=== PATIENT | male | born 1985 | race Hispanic/Latino ===

== ENCOUNTER 2018-10-12 22:23 | Emergency (ER) | payer BC, OTHER ==
--- OUTSIDE RECORDS SUMMARY | 2018-10-12 22:25 | XMS REPORT ---
:1985 Author Organization [facility] Address [address] [place] [address] Dr. Alberto. [address] [place] [id number] Care Team Providers Name Role Phone DR RONALDO LOZOYA Unavailable Unavailable Problems This patient has no known problems. Allergies, Adverse Reactions, Alerts This patient has no known allergies or adverse reactions. Medications This patient has no known medications. Encounters Start End Encounter Admission Attending Care Care Encounter Date/Time Date/Time Type Type Clinicians Facility Department ID 2017-04-23 2017-04-23 Outpatient JUSTIN GARCIA [facility] [id number] 04:48:00 08:10:00 RONALDO
[2018-10-12] MEDS ORDERED: LIDOCAINE 1% W/EPI 1:100,000 MDV 50 ML VIAL ONE (23:59)
[2018-10-12] MEDS ORDERED: BUPIVACAINE 0.5% PF 10 ML VIAL ONE (23:59)
[2018-10-12] MEDS ORDERED: NA CHLORIDE 0.9% 1,000 ML ONE (23:59)
[2018-10-13 00:09] LABS: Absolute Lymphocytes (CBC) 2.1 K/uL (0.7-4.9); Absolute Monocytes 1.1 K/uL (0.1-1.3); Absolute Neutrophil 6.4 K/uL (1.8-8.0); Basophils % 0.6 % (0-1.3); Eosinophils % 1.7 % (0-4.4); Hematocrit 44.8 % (39.6-49.0); MPV 9.6 fL (7.6-11.3); Monocytes % 11.6 % (3.3-12.3); RBC Red Blood Cell Count 5.22 M/uL (4.33-5.43)
[2018-10-13 00:27] LABS: BUN Blood Urea Nitrogen 13 mg/dL (7-18); Bicarbonate 29 mmol/L (21-32); Glucose Level 105 mg/dL (74-106); Potassium 3.7 mmol/L (3.5-5.1); Sodium Level 142 mmol/L (136-145)
[2018-10-13] MEDS ORDERED: HYDROCODONE/APAP 7.5/325 MG TAB ONE (01:33)
[2018-10-13] MEDS ORDERED: SMZ./TMP. 800/160 MG TABLET ONE (01:33)
[2018-10-13] MEDS ORDERED: NA CHLORIDE 0.9% 1,000 ML ONE (01:33)
[2018-10-13] MEDS ORDERED: CLINDAMYCIN 900MG/D5W 900 MG/50 ML IVPB IV ONE (01:34)
--- NOTE | 2018-10-13 01:45 | ER ---
Nurse's Notes [facility] Name: Carlos Williamson Age: 33 yrs Sex: Male : 1985 Arrival Date: 10/12/2018 Time: 22:24 Bed 18 Private MD: Vladislav Parks Diagnosis: Cutaneous abscess of buttock-left;Cellulitis of buttock-left Presentation: 10/12 22:59 Presenting complaint: Patient states: "I started to have this pain in my lower back and jd3 butt that I thought it was just muscle stiffness, but when I got in the shower I felt what might be like a head of a pimple and it feels hot and hurts to even sit. I don't know if it is infected or what.". Transition of care: patient was not received from another setting of care. Onset of symptoms was October 12, 2018. Risk Assessment: Do you want to hurt yourself or someone else? Patient reports no desire to harm self or others. Initial Sepsis Screen: Does the patient meet any 2 criteria? HR > 90 bpm. No. Patient's initial sepsis screen is negative. Does the patient have a suspected source of infection? No. Patient's initial sepsis screen is negative. Care prior to arrival: None. 22:59 Method Of Arrival: Ambulatory j 22:59 Acuity: LIVAN 3 jd3 Historical: - Allergies: 23:02 Teresa-[place]; jd3 - Home Meds: 23:02 None [Active]; jd3 - PMHx: 23:02 None; jd3 - PSHx: 23:02 None; jd3 - Immunization history:: Adult Immunizations up to date. - Social history:: Smoking status: Patient/guardian denies using tobacco. - Ebola Screening: : Patient negative for fever greater than or equal to 101.5 degrees Fahrenheit, and additional compatible Ebola Virus Disease symptoms. Screenin:05 Abuse screen: Denies threats or abuse. Nutritional screening: No deficits noted. jd3 Tuberculosis screening: No symptoms or risk factors identified. Fall Risk Ambulatory Aid- None/Bed Rest/Nurse Assist (0 pts). Gait- Normal/Bed Rest/Wheelchair (0 pts) Mental Status- Oriented to own ability (0 pts). Total Beck Fall Scale indicates No Risk (0-24 pts). Assessment: 23:03 General: Appears in no apparent distress. uncomfortable, Behavior is calm, cooperative, jd3 appropriate for age. Pain: Complains of pain in left gluteus william Quality of pain is described as aching, pressure, tender. Neuro: Level of Consciousness is awake, alert, obeys commands, Oriented to person, place, time, situation, Appropriate for age. Cardiovascular: Capillary refill < 3 seconds Patient's skin is warm and dry. Respiratory: Airway is patent Respiratory effort is even, unlabored, Respiratory pattern is regular, symmetrical. GI: No signs and/or symptoms were reported involving the gastrointestinal system. : No signs and/or symptoms were reported regarding the genitourinary system. EENT: No signs and/or symptoms were reported regarding the EENT system. Derm: Skin is intact, Skin is dry, Skin is normal, Skin temperature is warm Wound noted left gluteus william Wound is closed, swollen, red, warm to the touch, firm upon palpation. Musculoskeletal: Circulation, motion, and sensation intact. Range of motion: intact in all extremities. 23:30 Reassessment: Patient appears in no apparent distress at this time. Patient and/or jd3 family updated on plan of care and expected duration. Pain level reassessed. Patient is alert, oriented x 3, equal unlabored respirations, skin warm/dry/pink. provider at bedside. 10/13 00:40 Reassessment: Patient appears in no apparent distress at this time. Patient and/or jd3 family updated on plan of care and expected duration. Pain level reassessed. Patient is alert, oriented x 3, equal unlabored respirations, skin warm/dry/pink. 01:47 Reassessment: Patient appears in no apparent distress at this time. Patient and/or jd3 family updated on plan of care and expected duration. Pain level reassessed. Patient is alert, oriented x 3, equal unlabored respirations, skin warm/dry/pink. 02:27 Reassessment: Patient appears in no apparent distress at this time. Patient and/or jd3 family updated on plan of care and expected duration. Pain level reassessed. Patient is alert, oriented x 3, equal unlabored respirations, skin warm/dry/pink. Vital Signs: 10/12 23:02 BP 127 / 74; Pulse 108; Resp 16 S; Temp 99.5(TE); Pulse Ox 98% on R/A; Weight 126.1 kg jd3 (R); Height 5 ft. 10 in. (177.80 cm) (R); Pain 8/10; 23:30 BP 138 / 98; Pulse 105; Resp 17 S; Pulse Ox 98% on R/A; jd3 10/13 02:28 BP 107 / 79; Pulse 93; Resp 17 S; Pulse Ox 99% on R/A; jd3 10/12 23:02 Body Mass Index 39.89 (126.10 kg, 177.80 cm) jd3 ED Course: 10/12 22:24 Patient arrived in ED. am2 22:24 Vladislav Parks MD is Private Physician. am2 22:30 Ian Ascencio PA is PHCP. cp 22:30 Ian Sanchez MD is Attending Physician. cp 22:59 Nick Deluca RN is Primary Nurse. jd3 23:01 Triage completed. jd3 23:03 Arm band placed on. jd3 23:05 Patient has correct armband on for positive identification. Placed in gown. Bed in low jd3 position. Call light in reach. Side rails up X 1. 23:54 Missed attempt(s): 20 gauge in right antecubital area. ag4 23:55 Missed attempt(s): 22 gauge in right antecubital area. ag4 23:55 Inserted saline lock: 22 gauge in left antecubital area, using aseptic technique. Blood jd3 collected. 10/13 01:43 Bernard Mora MD is Referral Physician. cp 02:28 No provider procedures requiring assistance completed. IV discontinued, intact, jd3 bleeding controlled, No redness/swelling at site. Pressure dressing applied. Administered Medications: 00:04 Drug: NS 0.9% 1000 ml Route: IV; Rate: 1 bolus; Site: left antecubital; jd3 02:30 Follow up: Response: No adverse reaction; IV Status: Completed infusion jd3 00:30 Drug: Lidocaine-Epinephrine -1%: (1:100,000) 50 ml Volume: 20 ml; Route: Infiltration; jd3 02:30 Follow up: Response: No adverse reaction jd3 00:30 Drug: Marcaine (0.5 %) 10 ml Volume: 10 ml; Route: Infiltration; jd3 02:30 Follow up: Response: No adverse reaction jd3 01:40 Drug: Hydrocodone-Acetaminophen (7.5 mg-325 mg) 1 tabs Route: PO; jd3 02:31 Follow up: Response: No adverse reaction jd3 01:40 Drug: NS 0.9% 1000 ml Route: IV; Rate: 1 bolus; Site: left antecubital; jd3 02:31 Follow up: Response: No adverse reaction; IV Status: Completed infusion jd3 01:42 Drug: Clindamycin 900 mg Route: IVPB; Infused Over: 30 mins; Site: left antecubital; jd3 02:30 Follow up: Response: No adverse reaction; IV Status: Completed infusion jd3 01:43 Drug: Bactrim (160 mg-800 mg (DS) 1 tablet Route: PO; jd3 02:30 Follow up: Response: No adverse reaction jd3 Outcome: 01:44 Discharge ordered by . marco 02:29 Discharged to home ambulatory, with family. jd3 02:29 Condition: stable 02:29 Discharge instructions given to patient, Instructed on discharge instructions, follow up and referral plans. medication usage, Demonstrated understanding of instructions, follow-up care, medications, Prescriptions given X 3. 02:32 Patient left the ED. jd3 Signatures: Ian Ascencio PA PA cp Moreno, Amanda am2 Nick Deluca RN RN jd3 Jon Herrera ag4
--- NOTE | 2018-10-13 01:45 | EDPHYS ---
Physician Documentation [facility] Name: Carlos Williamson Age: 33 yrs Sex: Male : 1985 Arrival Date: 10/12/2018 Time: 22:24 Bed 18 Private MD: Vladislav Parks ED Physician Ian Sanchez HPI: 10/12 23:40 This 33 yrs old Male presents to ER via Ambulatory with complaints of swelling cp and redness to low back/buttock. 23:40 the patient presents with a swollen area of the left buttock. cp 23:40 Description: erythematous, swollen, warm. Onset: The symptoms/episode began/occurred cp today. Possible cause(s): unknown. Associated signs and symptoms: Pertinent negatives: discharge, drainage, fever. Historical: - Allergies: 23:02 Teresa-[place]; jd3 - Home Meds: 23:02 None [Active]; jd3 - PMHx: 23:02 None; jd3 - PSHx: 23:02 None; jd3 - Immunization history:: Adult Immunizations up to date. - Social history:: Smoking status: Patient/guardian denies using tobacco. - Ebola Screening: : Patient negative for fever greater than or equal to 101.5 degrees Fahrenheit, and additional compatible Ebola Virus Disease symptoms. ROS: 23:45 Constitutional: Negative for body aches, chills, fever, poor PO intake. cp 23:45 Eyes: Negative for injury, pain, redness, and discharge. cp 23:45 Respiratory: Negative for cough, shortness of breath, wheezing. 23:45 Abdomen/GI: Negative for abdominal pain, vomiting, diarrhea, constipation. 23:45 Skin: Positive for abscess, cellulitis, of the left buttock. 23:45 Neuro: Negative for altered mental status, headache. 23:45 All other systems are negative. Exam: 23:55 Constitutional: The patient appears in no acute distress, alert, awake, non-toxic, well cp developed, well nourished, obese. 23:55 Head/Face: Normocephalic, atraumatic. cp 23:55 Eyes: Periorbital structures: appear normal, Conjunctiva: normal, no exudate, no injection, Lids and lashes: appear normal, bilaterally. 23:55 ENT: External ear(s): are unremarkable, Nose: is normal, Mouth: Lips: moist, Oral mucosa: moist, Posterior pharynx: Airway: no evidence of obstruction, patent. 23:55 Chest/axilla: Inspection: normal. 23:55 Cardiovascular: Rate: tachycardic, Rhythm: regular. 23:55 Respiratory: the patient does not display signs of respiratory distress, Respirations: normal, no use of accessory muscles, no retractions, no splinting, no tachypnea. 23:55 Skin: abscess, that is small, with induration, with surrounding cellulitis. Vital Signs: 23:02 BP 127 / 74; Pulse 108; Resp 16 S; Temp 99.5(TE); Pulse Ox 98% on R/A; Weight 126.1 kg jd3 (R); Height 5 ft. 10 in. (177.80 cm) (R); Pain 8/10; 23:30 BP 138 / 98; Pulse 105; Resp 17 S; Pulse Ox 98% on R/A; jd3 10/13 02:28 BP 107 / 79; Pulse 93; Resp 17 S; Pulse Ox 99% on R/A; jd3 10/12 23:02 Body Mass Index 39.89 (126.10 kg, 177.80 cm) jd3 Procedures: 01:30 I \T\ D: Incision and drainage was performed for an abscess of the left buttocks Prepped cp with Betadine, Anesthetized with 6 ccs of 1% lidocaine with epi and 0.5% marcaine w/o epi. Incised with #11 blade. Drained small amount purulent fluid. Cultures obtained. Abscess cavity explored. Packed with iodoform gauze, Dressing: sterile 4x4 gauze, the patient tolerated the procedure well. MDM: 10/12 22:30 Patient medically screened. cp 10/13 00:00 Differential diagnosis: abscess, cellulitis, insect bite, pilonidal cyst. 01:42 Data reviewed: vital signs, nurses notes, lab test result(s), and as a result, I will cp discharge patient. 01:42 Counseling: I had a detailed discussion with the patient and/or guardian regarding: the cp historical points, exam findings, and any diagnostic results supporting the discharge/admit diagnosis, lab results, the need for outpatient follow up, a general surgeon, to return to the emergency department if symptoms worsen or persist or if there are any questions or concerns that arise at home. Response to treatment: the patient's symptoms have markedly improved after treatment, and as a result, I will discharge patient. 10/12 23:33 Order name: Wound Culture cp 10/12 23:33 Order name: CBC with Diff cp 10/12 23:33 Order name: BMP cp 10/12 23:34 Order name: Wound Culture EDMS 10/12 23:34 Order name: CBC with Automated Diff EDMS 10/12 23:33 Order name: I\T\D Setup; Complete Time: 00:05 cp Administered Medications: 00:04 Drug: NS 0.9% 1000 ml Route: IV; Rate: 1 bolus; Site: left antecubital; jd3 02:30 Follow up: Response: No adverse reaction; IV Status: Completed infusion jd3 00:30 Drug: Lidocaine-Epinephrine -1%: (1:100,000) 50 ml Volume: 20 ml; Route: Infiltration; jd3 02:30 Follow up: Response: No adverse reaction jd3 00:30 Drug: Marcaine (0.5 %) 10 ml Volume: 10 ml; Route: Infiltration; jd3 02:30 Follow up: Response: No adverse reaction jd3 01:40 Drug: Hydrocodone-Acetaminophen (7.5 mg-325 mg) 1 tabs Route: PO; jd3 02:31 Follow up: Response: No adverse reaction jd3 01:40 Drug: NS 0.9% 1000 ml Route: IV; Rate: 1 bolus; Site: left antecubital; jd3 02:31 Follow up: Response: No adverse reaction; IV Status: Completed infusion jd3 01:42 Drug: Clindamycin 900 mg Route: IVPB; Infused Over: 30 mins; Site: left antecubital; jd3 02:30 Follow up: Response: No adverse reaction; IV Status: Completed infusion jd3 01:43 Drug: Bactrim (160 mg-800 mg (DS) 1 tablet Route: PO; jd3 02:30 Follow up: Response: No adverse reaction jd3 Disposition: 06:59 Co-signature as Attending Physician, Ian Sanchez MD I agree with the assessment and savage plan of care. Disposition: 10/13/18 01:44 Discharged to Home. Impression: Cutaneous abscess of buttock - left, Cellulitis of buttock - left. - Condition is Stable. - Discharge Instructions: Skin Abscess, Cellulitis, Adult, Incision and Drainage. - Prescriptions for Clindamycin HCl 300 mg Oral Capsule - take 1 capsule by ORAL route every 6 hours for 10 days; 40 capsule. Tylenol- Codeine #3 300-30 mg Oral Tablet - take 2 tablets by ORAL route every 6 hours As needed; 20 tablet. Bactrim DS 800- 160 mg Oral Tablet - take 1 tablet by ORAL route every 12 hours for 10 days; 20 tablet. - Medication Reconciliation Form, Thank You Letter, Antibiotic Education, Prescription Opioid Use, Work release form form. - Follow up: Bernard Mora MD; When: 1 - 2 days; Reason: Wound Recheck. - Problem is new. - Symptoms have improved. Signatures: Dispatcher [employer] EDMS Ian Sanchez MD MD cha Page, Corey, PA PA cp Davies, Jonathon RN RN jd3 Corrections: (The following items were deleted from the chart) 02:32 01:44 10/13/2018 01:44 Discharged to Home. Impression: Cutaneous abscess of buttock - jd3 left; Cellulitis of buttock - left. Condition is Stable. Forms are Medication Reconciliation Form, Thank You Letter, Antibiotic Education, Prescription Opioid Use. Follow up: Bernard Mora; When: 1 - 2 days; Reason: Wound Recheck. Problem is new. Symptoms have improved. cp
== END 2018-10-13 02:32 | disposition home or self-care (01) ==
LOC: ER 22:23
PROC: 0J990ZZ Drainage of Buttock Subcutaneous Tissue and Fascia, Open Approach (ICD-10-PCS; principal; 2018-10-13)
DX: L03.317 Cellulitis of buttock (principal); Z88.8 Allergy status to other drugs, medicaments and biological substances
CPT/HCPCS: 36415; 80048; 85025; 87070; 87205; 96361; 96365; 99284; J7030

== ENCOUNTER 2018-10-14 18:21 | Emergency (ER) | payer OTHER ==
--- OUTSIDE RECORDS SUMMARY | 2018-10-14 18:23 | XMS REPORT ---
:1985 Author [facility] Address [address] [place] [address] Dr. Alberto. [address] [place] [id number] Care Team Providers Name Role Phone DR RONALDO LOZOYA Unavailable Unavailable Problems This patient has no known problems. Allergies, Adverse Reactions, Alerts This patient has no known allergies or adverse reactions. Medications This patient has no known medications. Encounters Start End Encounter Admission Attending Care Care Encounter Date/Time Date/Time Type Type Clinicians Facility Department ID 2017-04-23 2017-04-23 Outpatient JUSTIN GARCIA [facility] [id number] 04:48:00 08:10:00 RONALDO
--- NOTE | 2018-10-14 18:51 | EDPHYS ---
Physician Documentation [facility] Name: Carlos Williamson Age: 33 yrs Sex: Male : 1985 Arrival Date: 10/14/2018 Time: 18:23 Bed 5 Private MD: Vladislav Parks ED Physician Carlitos Peña HPI: 10/14 18:48 This 33 yrs old Male presents to ER via Ambulatory with complaints of Abscess pm1 Recheck. 18:48 Patient presents to ED for recheck of: abscess. The affected area is on the left pm1 gluteus william. 18:48 Previous treatment: The patient was initially treated yesterday. Progress: The patient pm1 reports decreased pain, redness, swelling. 18:48 The patient has not experienced similar symptoms in the past. The patient has been pm1 recently seen at the [facility] Emergency Department, yesterday, for similar complaints incision and drainage. Patient had packing that came out. Patient had an appointment scheduled with Dr. Mora office for an appointment today at 1445. When patient and his went to the office it was closed so he came to the ER for reevaluation of his wound. Historical: - Allergies: 18:26 Teresa-[place]; hj - PMHx: 18:26 None; hj - PSHx: 18:26 None; hj - Immunization history:: Adult Immunizations. - Social history:: Smoking status: . - Ebola Screening: : Patient denies travel to an Ebola-affected area in the 21 days before illness onset. ROS: 18:48 Constitutional: Negative for fever, chills, and weight loss, Cardiovascular: Negative pm1 for chest pain, palpitations, and edema, Respiratory: Negative for shortness of breath, cough, wheezing, and pleuritic chest pain, Abdomen/GI: Negative for abdominal pain, nausea, vomiting, diarrhea, and constipation, Back: Negative for injury and pain, : Negative for injury, bleeding, discharge, and swelling, MS/Extremity: Negative for injury and deformity. 18:48 Neuro: Negative for headache, weakness, numbness, tingling, and seizure. 18:48 Skin: Positive for abscess, of the left gluteus william, Negative for cellulitis. Exam: 18:48 Constitutional: This is a well developed, well nourished patient who is awake, alert, pm1 and in no acute distress. Head/Face: Normocephalic, atraumatic. Chest/axilla: Normal chest wall appearance and motion. Nontender with no deformity. No lesions are appreciated. Cardiovascular: Regular rate and rhythm with a normal S1 and S2. No gallops, murmurs, or rubs. Normal PMI, no JVD. No pulse deficits. Respiratory: Lungs have equal breath sounds bilaterally, clear to auscultation and percussion. No rales, rhonchi or wheezes noted. No increased work of breathing, no retractions or nasal flaring. Abdomen/GI: Soft, non-tender, with normal bowel sounds. No distension or tympany. No guarding or rebound. No evidence of tenderness throughout. Back: No spinal tenderness. No costovertebral tenderness. Full range of motion. 18:48 Skin: Wound recheck: Abscess: the wound has improved, the packing is not in place. Vital Signs: 18:26 BP 123 / 82; Pulse 96; Resp 18; Temp 98.5(TE); Pulse Ox 99% on R/A; Weight 124.74 kg; hj Height 5 ft. 10 in. (177.80 cm); Pain 9/10; 18:26 Body Mass Index 39.46 (124.74 kg, 177.80 cm) hj MDM: 18:42 Patient medically screened. pm1 18:43 Data reviewed: vital signs. Data interpreted: Pulse oximetry: on room air is 99 %. pm1 Interpretation: normal. 18:48 ED course: Patient is able to take ibuprofen. I was going to give the patient Toradol pm1 but drug allergy for Teresa-seltzer present. Patient's reaction to Teresa-seltzer is swelling of his face. Discussed with patient and we decided that it would be better to take ibuprofen instead at home. 18:48 Counseling: I had a detailed discussion with the patient and/or guardian regarding: the pm1 historical points, exam findings, and any diagnostic results supporting the discharge/admit diagnosis, the need for outpatient follow up, a general surgeon, Morgan, to return to the emergency department if symptoms worsen or persist or if there are any questions or concerns that arise at home. 10/14 18:41 Order name: Wound dressing; Complete Time: 18:41 tw2 Administered Medications: No medications were administered Disposition: 10/15 10:27 Co-signature as Attending Physician, Carlitos Peña MD I agree with the assessment and kdr plan of care. Disposition: 10/14/18 18:50 Discharged to Home. Impression: Cutaneous abscess of buttock. - Condition is Stable. - Discharge Instructions: Skin Abscess, Incision and Drainage, Care After. - Medication Reconciliation Form, Thank You Letter, Antibiotic Education, Prescription Opioid Use, Work release form form. - Follow up: Emergency Department; When: As needed; Reason: Worsening of condition. Follow up: Bernard Mora MD; When: 2 - 3 days; Reason: Recheck today's complaints, Continuance of care, Re-evaluation by your physician. - Problem is new. - Symptoms have improved. Signatures: Carlitos Peña MD MD [facility] Bernard Chery, RN RN Reynold Connelly, LENKA POLE CLASSIFIER pm1 Yashira Hylton RN RN tw2 Corrections: (The following items were deleted from the chart) 10/14 18:55 18:50 10/14/2018 18:50 Discharged to Home. Impression: Cutaneous abscess of buttock. tw2 Condition is Stable. Forms are Work release form, Medication Reconciliation Form, Thank You Letter, Antibiotic Education, Prescription Opioid Use. Follow up: Emergency Department; When: As needed; Reason: Worsening of condition. Follow up: Bernard Mora; When: 2 - 3 days; Reason: Recheck today's complaints, Continuance of care, Re-evaluation by your physician. Problem is new. Symptoms have improved. pm1
--- NOTE | 2018-10-14 18:51 | ER ---
Nurse's Notes [facility] Name: Carlos Williamson Age: 33 yrs Sex: Male : 1985 Arrival Date: 10/14/2018 Time: 18:23 Bed 5 Private MD: Vladislav Parks Diagnosis: Cutaneous abscess of buttock Presentation: 10/14 18:24 Presenting complaint: Patient states: This Wednesday night, i was here and they drained hj it the abscess on my L buttocks, the packing fell off; was told to follow up with a surgeon but wasn't able to, clinic is closed; the pain is getting worse; denies fever and chills;. Transition of care: patient was not received from another setting of care. Onset of symptoms was October 14, 2018. Risk Assessment: Do you want to hurt yourself or someone else? Patient reports no desire to harm self or others. Initial Sepsis Screen: Does the patient meet any 2 criteria? No. Patient's initial sepsis screen is negative. Does the patient have a suspected source of infection? No. Patient's initial sepsis screen is negative. Care prior to arrival: None. 18:24 Method Of Arrival: Ambulatory 18:24 Acuity: LIVAN 3 hj Historical: - Allergies: 18:26 [place]; hj - PMHx: 18:26 None; hj - PSHx: 18:26 None; hj - Immunization history:: Adult Immunizations. - Social history:: Smoking status: . - Ebola Screening: : Patient denies travel to an Ebola-affected area in the 21 days before illness onset. Screenin:33 Abuse screen: Denies threats or abuse. Nutritional screening: No deficits noted. tw2 Tuberculosis screening: No symptoms or risk factors identified. Fall Risk None identified. Assessment: 18:34 General: Appears in no apparent distress. Behavior is calm, cooperative, appropriate tw2 for age. Pain: Complains of pain in left gluteus william. Neuro: Level of Consciousness is awake, alert, obeys commands, Oriented to person, place, time, situation. Cardiovascular: Heart tones S1 S2 Patient's skin is warm and dry. Respiratory: Airway is patent Respiratory effort is even, unlabored, Respiratory pattern is regular, symmetrical, Breath sounds are clear bilaterally. GI: No signs and/or symptoms were reported involving the gastrointestinal system. Abdomen is flat, Bowel sounds present X 4 quads. : No signs and/or symptoms were reported regarding the genitourinary system. EENT: No signs and/or symptoms were reported regarding the EENT system. Derm: No signs and/or symptoms reported regarding the dermatologic system. Musculoskeletal: Range of motion: intact in all extremities. Vital Signs: 18:26 BP 123 / 82; Pulse 96; Resp 18; Temp 98.5(TE); Pulse Ox 99% on R/A; Weight 124.74 kg; hj Height 5 ft. 10 in. (177.80 cm); Pain 9/10; 18:26 Body Mass Index 39.46 (124.74 kg, 177.80 cm) ED Course: 18:23 Patient arrived in ED. mr 18:23 Vladislav Parks MD is Private Physician. mr 18:26 Triage completed. hj 18:26 Arm band placed on right wrist. hj 18:29 Placed in gown. Bed in low position. Pulse ox on. NIBP on. tw2 18:33 Reynold Connelly NP is PHCP. pm1 18:33 Carlitos Peña MD is Attending Physician. pm1 18:33 Yashira Hylton RN is Primary Nurse. tw2 18:42 examination of left buttocks. Patient did not have IV access during this emergency room tw2 visit. Dressings: 4X4s X 2; buttocks and left gluteus william. 18:50 Bernard Mora MD is Referral Physician. pm1 Administered Medications: No medications were administered Outcome: 18:50 Discharge ordered by . pm1 18:54 Discharged to home ambulatory, with significant other. tw2 18:54 Condition: stable 18:54 Discharge instructions given to patient, significant other, Instructed on discharge instructions, follow up and referral plans. wound care, Demonstrated understanding of instructions, follow-up care. 18:55 Patient left the ED. tw2 Signatures: Anastasiya Ralph Henry, RN RN Reynold Connelly NP WILDLIFE OFFICER pm1 Yashira Hylton RN RN tw2 Corrections: (The following items were deleted from the chart) 18:29 18:26 Pulse 96bpm; Resp 18bpm; Pulse Ox 99% RA; Temp 98.5F Temporal; 124.74 kg; Height hj 5 ft. 10 in.; BMI: 39.4; Pain 10; hj
== END 2018-10-14 18:55 | disposition home or self-care (01) ==
LOC: ER 18:21
DX: L02.31 Cutaneous abscess of buttock (principal); Z48.01 Encounter for change or removal of surgical wound dressing; Z88.8 Allergy status to other drugs, medicaments and biological substances
CPT/HCPCS: 99283